=== PATIENT | female | born 1990 | race American Indian/Alaskan Native ===

== ENCOUNTER 2020-12-26 20:50 | Outpatient (CLI) | payer SELFPAY ==
[2020-12-26 22:15] VITALS: BP 138/80
[2020-12-26] MEDS ORDERED: FLUCONAZOLE 200 MG TAB PO ONE (23:15)
== END 2020-12-26 23:15 | disposition home or self-care (01) ==
LOC: TRG 20:50 → APU 20:52 → TRG 23:15
PROVIDERS: ATTEND Obstetrics & Gynecology
DX: Z34.93 Encounter for supervision of normal pregnancy, unspecified, third trimester (principal); Z3A.40 40 weeks gestation of pregnancy
CPT/HCPCS: 59025